=== PATIENT | male | born 2000 | race Two or more races ===

== ENCOUNTER 2018-03-30 14:24 | Emergency (ER) | payer MEDICAID, OTHER ==
[~2018-03-30] VITALS: Ht 175.3 cm; Wt 59.0 kg
[2018-03-30 14:29] VITALS: BP 130/58
== END 2018-03-30 16:27 | disposition home or self-care (01) ==
LOC: ER 14:24
DX: L03.032 Cellulitis of left toe (principal); L03.031 Cellulitis of right toe; Z88.0 Allergy status to penicillin